=== PATIENT | male | born 1980 | race Caucasian/White ===

== ENCOUNTER → 2016-02-21 | Outpatient (CLI) | payer OTHER ==
--- NOTE | 2016-02-21 10:10 | KCIC ---
PROCEDURE Two-view left hip HISTORY Left sciatic nerve pain for 1 year. COMPARISON None FINDINGS Joint space intact. No evidence of obvious soft tissue abnormality. No acute fracture or bone destruction. IMPRESSION No evidence of acute radiographic abnormality. Electronically signed by: Dylan Oates MD (Feb 21, 2016 10:09:45)
== END | disposition home or self-care (01) ==
LOC: KCIC 09:37
PROVIDERS: ATTEND Nurse Practitioner Family
DX: M54.32 Sciatica, left side (principal)
CPT/HCPCS: 73502